=== PATIENT | female | born 1960 | race African-American/Black ===

== ENCOUNTER 2017-07-27 01:05 | Emergency (ER) | payer SELFPAY ==
[~2017-07-27] VITALS: Ht 160 cm; Wt 66.7 kg
[~2017-07-27 01:05] MED LIST: HYDR-971 PO
[2017-07-27 01:32] VITALS: BP 171/106
[2017-07-27] MEDS ORDERED: PENI500T PO (01:43)
--- NOTE | 2017-07-27 01:44 | PHYS DOC ---
Past Medical History Past Medical History: Hypertension, Hypothyroid Past Surgical History: Additional Past Surgical Histo: abscess Alcohol Use: None Drug Use: None Adult General Chief Complaint Chief Complaint: DENTAL PROBLEM HPI HPI Patient is a 57 year old F who presents with tooth pain. Patient states she was eating some nodules and fractured her left upper canine. Patient has severe dental disease has been having dental work done recently. Patient believes she is infection in this left upper canine tooth and would like antibiotics. Patient denies any other symptoms. Patient has no other complaints. Review of Systems Review of Systems GEN: Denies fevers, chills, sweats HEENT: Tooth pain CV: Denies chest pain RESP: Denies shortness of air, cough GI: Denies n/v/d NEURO: Denies confusion, dizziness MSK: Denies weakness, joint pain/swelling Allergies Allergies Allergies Coded Allergies Type Severity Reaction Last Updated Verified No Known Drug Allergies 07/09/14 No Physical Exam Physical Exam GEN.: No apparent distress. Alert and oriented. HEENT: Head is normocephalic, atraumatic, widespread dental caries and dental disease and gingivitis, left upper canine fracture with severe gingivitis NECK: Supple. LUNGS: CTAB. HEART: RRR, S1, S2 present. Peripheral pulses intact ABDOMEN: Soft, nontender. Positive bowel sounds. EXTREMITIES: Without any cyanosis. NEUROLOGIC: Normal speech, normal tone PSYCHIATRIC: Normal affect, normal mood. SKIN: No ulcerations EKG EKG [] Radiology/Procedures Radiology/Procedures [] Course & Med Decision Making Course & Med Decision Making Pertinent Labs and Imaging studies reviewed. (See chart for details) ED course: Patient was seen and examined emergency room patient has severe dental disease as currently getting dental work done at however the fractured tooth she would like antibiotics plan will be to give the patient penicillin VK to have her follow up with her dentist on Saturday. MDM: After reviewing the chart, CC/HPI/PMH, physical exam, I do not believe the patient has a severe dental infection warranting further workup and/or admission at this time. Patient is stable for discharge. Patient will receive a prescription for Penicillin VK with short-term follow-up with her dentist. Additional verbal discharge instructions were provided to the patient and that if symptoms get worse or any new symptoms arise that are worrisome to the patient she is to return to the emergency room immediately [] Emanuel Disclaimer Dragon Disclaimer This electronic medical record was generated, in whole or in part, using a voice recognition dictation system. Departure Departure Impression: Primary Impression: Fractured tooth Additional Impressions: Dental caries Gingivitis Disposition: HOME, SELF-CARE Condition: IMPROVED Referrals: NO PCP (PCP) Patient Instructions: Tooth Fracture Additional Instructions: Please follow up with your dentist at as soon as possible and return if symptoms increase Scripts Penicillin V Potassium (PENICILLIN V POTASSIUM) 500 Mg Tablet 1 TAB PO QID, #40 TAB Prov: MARY MARTINEZ DO 07/27/17 Problem Qualifiers MARY MARTINEZ DO Jul 27, 2017 01:44
[2017-07-27] MEDS ORDERED: PENICILLIN V K 250 MG TABLET. PO ONE (01:45)
== END 2017-07-27 01:59 | disposition home or self-care (01) ==
LOC: ER 01:05
DX: S02.5XXA Fracture of tooth (traumatic), initial encounter for closed fracture (principal); K02.9 Dental caries, unspecified; K05.10 Chronic gingivitis, plaque induced; I10 Essential (primary) hypertension; E03.9 Hypothyroidism, unspecified; X58.XXXA Exposure to other specified factors, initial encounter; Y93.89 Activity, other specified; Y92.89 Other specified places as the place of occurrence of the external cause; Y99.8 Other external cause status
CPT/HCPCS: 99283

== ENCOUNTER 2017-10-08 12:53 | Emergency (ER) | payer SELFPAY ==
[~2017-10-08] VITALS: Ht 160 cm; Wt 67.1 kg
[~2017-10-08 12:53] MED LIST changes: +PENI500T PO
[2017-10-08 13:00] VITALS: BP 163/100
[2017-10-08] MEDS ORDERED: AMOX500T PO (13:13)
[2017-10-08] MEDS ORDERED: DICL50TA4 PO (13:13)
--- NOTE | 2017-10-08 13:14 | PHYS DOC ---
Past Medical History Past Medical History: Hypertension, Hypothyroid Past Surgical History: Additional Past Surgical Histo: abscess Alcohol Use: None Drug Use: None Adult General Chief Complaint Chief Complaint: DENTAL PROBLEM HPI HPI Patient is a 57 year old female with history of hypertension and hypothyroidism who presents with moderate dental pain. Patient states she broke her tooth couple days ago. She states she has an appointment with her dentist on October 16, 2017 and was like antibiotics. Patient denies any fever or trismus. Review of Systems Review of Systems Constitutional: Denies fever or chills [] HENT: Dental pain. Denies nasal congestion or sore throat [] Musculoskeletal: Denies back pain or joint pain [] Integument: Denies rash or skin lesions [] Neurologic: Denies headache, focal weakness or sensory changes [] All other systems were reviewed and found to be within normal limits, except as documented in this note. Allergies Allergies Allergies Coded Allergies Type Severity Reaction Last Updated Verified No Known Drug Allergies 07/09/14 No Physical Exam Physical Exam Constitutional: Well developed, well nourished, no acute distress, non-toxic appearance. [] HENT: Normocephalic, atraumatic, bilateral external ears normal, oropharynx moist, no oral exudates, nose normal. [] Scattered dental caries throughout her teeth. Most of her teeth are missing.Left upper Canine appears broken and decayed. Skin: Warm, dry, no erythema, no rash. [] Back: No tenderness, no CVA tenderness. [] Extremities: No tenderness, no cyanosis, no clubbing, ROM intact, no edema. [] Neurologic: Alert and oriented X 3, normal motor function, normal sensory function, no focal deficits noted. [] Psychologic: Affect normal, judgement normal, mood normal. [] Current Patient Data Vital Signs Vital Signs Date Time Temp Pulse Resp B/P (MAP) Pulse Ox O2 Delivery O2 Flow Rate FiO2 10/08/17 13:00 97.8 71 16 99 Room Air 97.8 EKG EKG [] Radiology/Procedures Radiology/Procedures [] Course & Med Decision Making Course & Med Decision Making Pertinent Labs and Imaging studies reviewed. (See chart for details) Patient is in the ED with infected dental caries. Discharged with amoxicillin for 10 days. She has an appointment with her dentist on the September. Discharged with diclofenac for pain. Blood pressure in the emergency room was high in the 160s over 100's. Instructed patient to follow-up with her PCP in 1-2 weeks. Emanuel Disclaimer Emanuel Disclaimer This electronic medical record was generated, in whole or in part, using a voice recognition dictation system. Departure Departure Impression: Primary Impression: Infected dental caries Additional Impressions: Dentalgia Hypertension Disposition: 01 HOME, SELF-CARE Condition: STABLE Referrals: NO PCP (PCP) follow up with your dentist and primary care doctor as soon as you can Patient Instructions: Dental Caries Additional Instructions: You were seen for infected dental caries. Follow-up with your dentist as scheduled. Follow-up with the primary care doctor also because her blood pressure was high in the emergency room. Scripts Diclofenac Sodium (DICLOFENAC SODIUM) 50 Mg Tablet.dr 1 TAB PO BID, #20 TAB 0 Refills Prov: TRENTON HERNANDEZ APRN 10/08/17 Amoxicillin (AMOXICILLIN) 500 Mg Tablet 1 TAB PO TID, #30 TAB Prov: TRENTON HERNANDEZ APRN 10/08/17 Problem Qualifiers Additional Impressions: Hypertension Hypertension type: unspecified Qualified Codes: I10 - Essential (primary) hypertension TRENTON HERNANDEZ APRN Oct 08, 2017 13:14
== END 2017-10-08 13:26 | disposition home or self-care (01) ==
LOC: ER 12:53
DX: K04.7 Periapical abscess without sinus (principal); K02.9 Dental caries, unspecified; I10 Essential (primary) hypertension; E03.9 Hypothyroidism, unspecified
CPT/HCPCS: 99283

== ENCOUNTER 2017-12-04 11:21 | Emergency (ER) | payer SELFPAY | END 2017-12-04 11:53 | disposition home or self-care (01) | LOC: ER 11:21 | DX: K04.7 Periapical abscess without sinus (principal); K02.9 Dental caries, unspecified; I10 Essential (primary) hypertension; E03.9 Hypothyroidism, unspecified | CPT/HCPCS: 99283 ==

== ENCOUNTER 2018-03-07 08:41 | Emergency (ER) | payer SELFPAY, OTHER ==
[2018-03-07 09:07] LABS: BILIRUBIN,URINE NEGATIVE (NEG); CLARITY,URINE CLOUDY; COLOR,URINE YELLOW; GLUCOSE,URINE NEGATIVE (NEG); NITRITE,URINE NEGATIVE (NEG); PROTEIN,URINE NEGATIVE (NEG-TRACE); UROBILINOGEN,URINE 0.2 mg/dL (0.2 mg/dL)
[2018-03-07 09:22] LABS: BACTERIA,URINE FEW /HPF (0-FEW); SQUAMOUS EPITHELIAL CELL,UR MOD /LPF
== END 2018-03-07 09:30 | disposition home or self-care (01) ==
LOC: ER 09:30
DX: N39.0 Urinary tract infection, site not specified (principal); K08.89 Other specified disorders of teeth and supporting structures; I10 Essential (primary) hypertension; E03.9 Hypothyroidism, unspecified
CPT/HCPCS: 81001; 87086; 99284

== ENCOUNTER 2018-06-02 15:06 | Emergency (ER) | payer SELFPAY ==
[2018-06-02] MEDS: traMADol 50 MG TABLET PO (15:21)
== END 2018-06-02 16:11 | disposition home or self-care (01) ==
LOC: ER 15:06
DX: S63.501A Unspecified sprain of right wrist, initial encounter (principal); I10 Essential (primary) hypertension; E03.9 Hypothyroidism, unspecified; W18.30XA Fall on same level, unspecified, initial encounter; Y93.89 Activity, other specified; Y92.89 Other specified places as the place of occurrence of the external cause; Y99.8 Other external cause status
CPT/HCPCS: 29125; 73110; 99284

== ENCOUNTER 2018-06-08 21:33 | Emergency (ER) | payer SELFPAY ==
[2018-06-08 21:59] LABS: BILIRUBIN,URINE NEGATIVE (NEG); CLARITY,URINE CLOUDY; COLOR,URINE YELLOW; GLUCOSE,URINE NEGATIVE (NEG); NITRITE,URINE NEGATIVE (NEG); PH,URINE 5.5; PROTEIN,URINE 100 mg/dL (NEG-TRACE); UROBILINOGEN,URINE 0.2 mg/dL (0.2 mg/dL)
[2018-06-08 22:05] LABS: BACTERIA,URINE FEW /HPF (0-FEW); HYALINE CASTS, URINE OCCASIONAL /HPF; SQUAMOUS EPITHELIAL CELL,UR MOD /LPF
[2018-06-08] MEDS: traMADol 50 MG TABLET PO (22:45)
[2018-06-08] MEDS: NAPROXEN 250 MG TABLET PO (22:45)
== END 2018-06-08 22:49 | disposition home or self-care (01) ==
LOC: ER 21:33
DX: R22.31 Localized swelling, mass and lump, right upper limb (principal); R30.0 Dysuria; I10 Essential (primary) hypertension; E03.9 Hypothyroidism, unspecified
CPT/HCPCS: 81001; 99283

== ENCOUNTER 2018-09-28 14:59 | Emergency (ER) | payer SELFPAY ==
[~2018-09-28] VITALS: Ht 160 cm; Wt 66.2 kg
[~2018-09-28 14:59] MED LIST changes: +AMOX500T PO; +DICL50TA4 PO; +NAPR-683 PO; +SULF1TAB24 PO; +TRAM50TA PO
[2018-09-28 16:00] VITALS: BP 175/99
[2018-09-28] MEDS ORDERED: ACET-704 PO (17:14)
[2018-09-28] MEDS ORDERED: PENI500T PO (17:14)
--- NOTE | 2018-09-28 17:14 | PHYS DOC ---
Past Medical History Past Medical History: Hypertension, Hypothyroid Past Surgical History: , Other Additional Past Surgical Histo: abscess Alcohol Use: None Drug Use: None Adult General Chief Complaint Chief Complaint: DENTAL PROBLEM HPI HPI Patient is a 58 year old [f__sex] who presents with [] Review of Systems Review of Systems Constitutional: Denies fever or chills [] Eyes: Denies change in visual acuity, redness, or eye pain [] HENT: Denies nasal congestion or sore throat [] Respiratory: Denies cough or shortness of breath [] Cardiovascular: No additional information not addressed in HPI [] GI: Denies abdominal pain, nausea, vomiting, bloody stools or diarrhea [] : Denies dysuria or hematuria [] Musculoskeletal: Denies back pain or joint pain [] Integument: Denies rash or skin lesions [] Neurologic: Denies headache, focal weakness or sensory changes [] Endocrine: Denies polyuria or polydipsia [] All other systems were reviewed and found to be within normal limits, except as documented in this note. Allergies Allergies Allergies Coded Allergies Type Severity Reaction Last Updated Verified No Known Drug Allergies 07/09/14 No Physical Exam Physical Exam Constitutional: Well developed, well nourished, no acute distress, non-toxic appearance. [] HENT: Normocephalic, atraumatic, bilateral external ears normal, oropharynx moist, no oral exudates, nose normal. [] Eyes: PERRLA, EOMI, conjunctiva normal, no discharge. [] Neck: Normal range of motion, no tenderness, supple, no stridor. [] Cardiovascular:Heart rate regular rhythm, no murmur [] Lungs & Thorax: Bilateral breath sounds clear to auscultation [] Abdomen: Bowel sounds normal, soft, no tenderness, no masses, no pulsatile masses. [] Skin: Warm, dry, no erythema, no rash. [] Back: No tenderness, no CVA tenderness. [] Extremities: No tenderness, no cyanosis, no clubbing, ROM intact, no edema. [] Neurologic: Alert and oriented X 3, normal motor function, normal sensory function, no focal deficits noted. [] Psychologic: Affect normal, judgement normal, mood normal. [] Current Patient Data Vital Signs Vital Signs Date Time Temp Pulse Resp B/P (MAP) Pulse Ox O2 Delivery O2 Flow Rate FiO2 11/11/18 16:00 98.2 73 16 175/99 (124) 100 Room Air 98.2 EKG EKG [] Radiology/Procedures Radiology/Procedures [] Course & Med Decision Making Course & Med Decision Making Pertinent Labs and Imaging studies reviewed. (See chart for details) [] Dragon Disclaimer Dragon Disclaimer This electronic medical record was generated, in whole or in part, using a voice recognition dictation system. Departure Departure Impression: Primary Impression: Dentalgia Additional Impression: Infected dental caries Disposition: HOME, SELF-CARE Condition: STABLE Referrals: NO PCP (PCP) Patient Instructions: Dental Caries, Dental Pain, [id number] Additional Instructions: Fill prescriptions and use as directed. Follow up with your dentist on 10/09/18 as planned, return to ER if symptoms worsen. Scripts Acetaminophen With Codeine (TYLENOL WITH CODEINE #3 TABLET) 1 Each Tablet 1 TAB PO PRN Q6HRS PRN for PAIN for 3 Days, #12 TAB 0 Refills Prov: WESLEY SRIVASTAVA APRN 09/28/18 Penicillin V Potassium (PENICILLIN V POTASSIUM) 500 Mg Tablet 500 MG PO QID for 10 Days, #40 TAB 0 Refills Prov: WESLEY SRIVASTAVA APRN 09/28/18 Problem Qualifiers WESLEY SRIVASTAVA APRN Sep 28, 2018 17:14
== END 2018-09-28 17:15 | disposition home or self-care (01) ==
LOC: ER 14:59
DX: K02.9 Dental caries, unspecified (principal); I10 Essential (primary) hypertension; E03.9 Hypothyroidism, unspecified; Z98.890 Other specified postprocedural states
CPT/HCPCS: 99283

== ENCOUNTER 2019-02-09 10:51 | Emergency (ER) | payer SELFPAY ==
[~2019-02-09] VITALS: Ht 160 cm; Wt 66.2 kg
[~2019-02-09 10:51] MED LIST changes: +ACET-704 PO; +HYDR-3164 PO; -HYDR-971 PO
[2019-02-09 11:17] VITALS: BP 175/99
[2019-02-09] MEDS ORDERED: ACET-704 PO (11:40)
[2019-02-09] MEDS ORDERED: AMOX875T PO (11:40)
--- NOTE | 2019-02-09 11:40 | PHYS DOC ---
Past Medical History Past Medical History: Hypertension, Hypothyroid Past Surgical History: , Other Additional Past Surgical Histo: abscess Alcohol Use: None Drug Use: None Adult General Chief Complaint Chief Complaint: DENTAL PROBLEM HPI HPI Patient is a 58 year old female with history of hypertension, hypothyroidism, who presents today complaining of a throbbing 8 out of 10 frontal dental pain that began yesterday. Patient states her gum and draining pus since yesterday. Patient denies any fever or trismus. She states she has an appointment with her dentist next week. Intermittent Review of Systems Review of Systems Constitutional: Denies fever or chills [] Eyes: Denies change in visual acuity, redness, or eye pain [] HENT: Reports frontal gums upper teeth dental pain Denies nasal congestion or sore throat [] Musculoskeletal: Denies back pain or joint pain [] Integument: Denies rash or skin lesions [] Neurologic: Denies headache, focal weakness or sensory changes [] All other systems were reviewed and found to be within normal limits, except as documented in this note. Allergies Allergies Allergies Coded Allergies Type Severity Reaction Last Updated Verified No Known Drug Allergies 07/09/14 No Physical Exam Physical Exam Constitutional: Well developed, well nourished, no acute distress, non-toxic appearance. [] HENT: Normocephalic, atraumatic, bilateral external ears normal, oropharynx moist, no oral exudates, nose normal. [] Patient is missing most of her front teeth #8 and 9, there is trace amount of decayed teeth #8 and 9 left, the gum appears erythematous around this area. No obvious drainage noted. Skin: Warm, dry, no erythema, no rash. [] Back: No tenderness, no CVA tenderness. [] Extremities: No tenderness, no cyanosis, no clubbing, ROM intact, no edema. [] Neurologic: Alert and oriented X 3, normal motor function, normal sensory function, no focal deficits noted. [] Psychologic: Affect normal, judgement normal, mood normal. [] Current Patient Data Vital Signs Vital Signs Date Time Temp Pulse Resp B/P (MAP) Pulse Ox O2 Delivery O2 Flow Rate FiO2 02/09/19 11:17 98.6 82 18 175/99 (124) 99 Room Air 98.6 EKG EKG [] Radiology/Procedures Radiology/Procedures [] Course & Med Decision Making Course & Med Decision Making Pertinent Labs and Imaging studies reviewed. (See chart for details) This is a 58-year-old female patient presented to the ED today with dental infection. Will be discharged with amoxicillin and Tylenol #3. Follow-up with her dentist next week as scheduled. Zac Castellanos Disclaimer Dragon Disclaimer This electronic medical record was generated, in whole or in part, using a voice recognition dictation system. Departure Departure Impression: Primary Impression: Dentalgia Additional Impression: Abscess, dental Disposition: HOME, SELF-CARE Condition: STABLE Referrals: NO PCP (PCP) Follow-up with your dentist next week Patient Instructions: Dental Abscess Additional Instructions: You were elevated in the emergency room for dental infection. Please complete your antibiotics and follow-up with your dentist next week. Scripts Acetaminophen With Codeine (TYLENOL WITH CODEINE #3 TABLET) 1 Each Tablet 1 TAB PO PRN Q6HRS PRN for PAIN, #14 TAB Prov: TRENTON HERNANDEZ YIELD CLERK 02/09/19 Amoxicillin (AMOXICILLIN) 875 Mg Tablet 1 TAB PO BID, #20 TAB Prov: TRENTON HERNANDEZ YIELD CLERK 02/09/19 Problem Qualifiers TRENTON HERNANDEZ YIELD CLERK Feb 09, 2019 11:40
== END 2019-02-09 11:46 | disposition home or self-care (01) ==
LOC: ER 10:51
DX: K04.7 Periapical abscess without sinus (principal); K02.9 Dental caries, unspecified; I10 Essential (primary) hypertension; E03.9 Hypothyroidism, unspecified; Z98.890 Other specified postprocedural states
CPT/HCPCS: 99283

== ENCOUNTER 2019-03-09 08:17 | Emergency (ER) | payer SELFPAY ==
[~2019-03-09] VITALS: Ht 162.6 cm; Wt 64.9 kg
[~2019-03-09 08:17] MED LIST changes: +AMOX875T PO
[2019-03-09 08:29] VITALS: BP 161/97
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
[2019-03-09] MEDS ORDERED: SILV20CR14 TP (08:56)
== END 2019-03-09 09:06 | disposition home or self-care (01) ==
LOC: ER 08:17
DX: T20.26XA Burn of second degree of forehead and cheek, initial encounter (principal); I10 Essential (primary) hypertension; E03.9 Hypothyroidism, unspecified; X10.2XXA Contact with fats and cooking oils, initial encounter; Y93.G3 Activity, cooking and baking; Y92.89 Other specified places as the place of occurrence of the external cause; Y99.8 Other external cause status
CPT/HCPCS: 99283

== ENCOUNTER 2019-11-25 05:53 | Emergency (ER) | payer SELFPAY ==
[~2019-11-25] VITALS: Ht 160 cm; Wt 68.0 kg
[~2019-11-25 05:53] MED LIST changes: +SILV20CR14 TP
[2019-11-25 06:00] VITALS: BP 157/103
[2019-11-25] MEDS ORDERED: PENI500T PO (06:31)
[2019-11-25] MEDS ORDERED: NAPR-683 PO (06:31)
--- NOTE | 2019-11-25 06:32 | PHYS DOC ---
Past Medical History Past Medical History: Hypertension, Hypothyroid Past Surgical History: , Other Additional Past Surgical Histo: abscess Alcohol Use: Rarely Drug Use: None Adult General Chief Complaint Chief Complaint: DENTAL PROBLEM HPI HPI Patient is a 59 year old female with history of hypertension and hypothyroidism who presents with complaint of tooth pain. Patient rates she lost the crown for tooth #3 about 2 weeks ago and since then has had constant pain and rated her pain 10 over 10. Patient states she has appointment with her dentist for December 05 and was taking antibiotic and pain medication before seen by her doctor. Patient is asking for work excuse for today. She has had frequent emergency room visits for dental pain. Review of Systems Review of Systems Constitutional: Denies fever or chills [] Eyes: Denies change in visual acuity, redness, or eye pain [] HENT: Denies nasal congestion or sore throat, reports tooth pain [] Respiratory: Denies cough or shortness of breath [] Cardiovascular: No additional information not addressed in HPI [] GI: Denies abdominal pain, nausea, vomiting, bloody stools or diarrhea [] : Denies dysuria or hematuria [] Musculoskeletal: Denies back pain or joint pain [] Integument: Denies rash or skin lesions [] Neurologic: Denies headache, focal weakness or sensory changes [] Endocrine: Denies polyuria or polydipsia [] All other systems were reviewed and found to be within normal limits, except as documented in this note. Allergies Allergies Allergies Coded Allergies Type Severity Reaction Last Updated Verified No Known Drug Allergies 07/09/14 No Physical Exam Physical Exam Constitutional: Well developed, well nourished, mild distress, non-toxic appearance. [] HENT: Normocephalic, atraumatic, bilateral external ears normal, oropharynx m oist, no oral exudates, nose normal, several missing teeth, tooth #3 with missing the filling and mild gum tenderness and edema. [] Eyes: PERRLA, EOMI, conjunctiva normal, no discharge. [] Neck: Normal range of motion, no tenderness, supple, no stridor. [] Cardiovascular:Heart rate regular rhythm, no murmur [] Lungs & Thorax: Bilateral breath sounds clear to auscultation [] Extremities: No tenderness, no cyanosis, no clubbing, ROM intact, no edema. [] Neurologic: Alert and oriented X 3, normal motor function, normal sensory function, no focal deficits noted. [] Psychologic: Affect anxious, judgement normal, mood normal. [] Current Patient Data Vital Signs Vital Signs Date Time Temp Pulse Resp B/P (MAP) Pulse Ox O2 Delivery O2 Flow Rate FiO2 11/25/19 06:00 97.9 70 16 157/103 (121) 100 Room Air 97.9 EKG EKG [] Radiology/Procedures Radiology/Procedures [] Course & Med Decision Making Course & Med Decision Making Evaluation of patient in ER showed 59-year-old female patient with complaining of missing dental crown and pain for 2 weeks. She also had blood pressure of 160s over 100 at arrival to ER and states that she just took her blood pressure medication prior to arrival to ER. Blood pressure gradually dropped [id number]. Patient has appointment with her dentist in December 05. I've spoken with the patient and/or caregivers. I've explained the patient's condition, diagnosis and treatment plan based on information available to me at this time. I've answered the patient's and/or caregivers questions and addressed any concerns. The patient and/or caregivers have a good understanding the patient's diagnosis, condition and treatment plan as can be expected at this point. Vital signs have been stabilized. The patient's condition is stable for discharge from the emergency department. The patient will pursue further outpatient evaluation with her primary care provider or other designated consulting physician as outlined in the discharge instructions. Patient and/or caregivers are agreeable to this plan of care and follow-up instructions have been explained in detail. The patient and/or care givers have received these instructions in written format and expressed understanding of these discharge instructions. The patient and her caregivers are aware that if any significant change in condition or worsening of symptoms should prompt him to immediately return to this of the closest emergency department. If an emergent department is not readily available I would encourage him to call 911. Emanuel Disclaimer Emanuel Disclaimer This electronic medical record was generated, in whole or in part, using a voice recognition dictation system. Departure Departure Impression: Primary Impression: Dentalgia Additional Impressions: Infected dental caries Hypertension, accelerated Disposition: HOME, SELF-CARE (At 0627) Condition: STABLE Referrals: UNKNOWN PCP NAME (PCP) Patient Instructions: Managing Your High Blood Pressure, Tooth Fracture Additional Instructions: Follow-up with your dentist appointment as scheduled for December 05 Return to ER if not getting better Thank you for visiting [facility]. We appreciate you trusting us with your care. If any additional problems come up don't hesitate to return to visit us. Please follow up with your primary care provider so they can plan additional care if needed and know about the problem that you had. If symptoms worsen come back to the Emergency Department. Any concerning symptoms that start such as chest pain, shortness of air, weakness or numbness on one side of the body, running high fevers or any other concerning symptoms return to the ER. Scripts Penicillin V Potassium (PENICILLIN V POTASSIUM) 500 Mg Tablet 2 TAB PO Q12HR, #40 TAB Prov: LUIS VERA MD 11/25/19 Naproxen (NAPROSYN) 500 Mg Tablet 1 TAB PO BID for pain, #20 TAB Prov: LUIS VERA MD 11/25/19 Problem Qualifiers LUIS VERA MD Nov 25, 2019 06:31
== END 2019-11-25 06:35 | disposition home or self-care (01) ==
LOC: ER 05:53
DX: K02.9 Dental caries, unspecified (principal); K08.89 Other specified disorders of teeth and supporting structures; I10 Essential (primary) hypertension; E03.9 Hypothyroidism, unspecified; Z98.890 Other specified postprocedural states
CPT/HCPCS: 99283

== ENCOUNTER 2020-02-22 10:20 | Emergency (ER) | payer SELFPAY ==
[~2020-02-22] VITALS: Ht 160 cm; Wt 63.6 kg
[2020-02-22 10:27] VITALS: BP 177/103
[2020-02-22] MEDS ORDERED: ACET-704 PO (10:57)
[2020-02-22] MEDS ORDERED: PENI500T PO (10:57)
--- NOTE | 2020-02-22 10:57 | PHYS DOC ---
Past Medical History Past Medical History: Hypertension, Hypothyroid Past Surgical History: , Other Additional Past Surgical Histo: abscess Smoking Status: Never Smoker Alcohol Use: Rarely Drug Use: None Adult General Chief Complaint Chief Complaint: DENTAL PROBLEM HPI HPI Patient is a 60 year old female who presents with right back dental pain with right-sided facial swelling for the last week. Patient states is actually been going on longer than that she is been taking Tylenol but is not helping anymore. She does have an appointment at [facility] on the . She rates her pain an 8 out of 10. She denies fever, nausea, vomiting, body aches, cough, abdominal pain, chest pain, shortness of air, dizziness, headache. Review of Systems Review of Systems HENT: Denies nasal congestion or sore throat. Dental pain. [] All other systems were reviewed and found to be within normal limits, except as documented in this note. Allergies Allergies Allergies Coded Allergies Type Severity Reaction Last Updated Verified No Known Drug Allergies 07/09/14 No Physical Exam Physical Exam Constitutional: Well developed, well nourished, no acute distress, non-toxic appearance. [] HENT: Normocephalic, atraumatic, bilateral external ears normal, oropharynx moist, no oral exudates, nose normal. Right upper back molar dental carry with right-sided facial swelling and gumline swelling. [] Eyes: PERRLA, EOMI, conjunctiva normal, no discharge. [] Neck: Normal range of motion, no tenderness, supple, no stridor. [] Cardiovascular:Heart rate regular rhythm, no murmur [] Lungs & Thorax: Bilateral breath sounds clear to auscultation [] Abdomen: Bowel sounds normal, soft, no tenderness, no masses, no pulsatile masses. [] Skin: Warm, dry, no erythema, no rash. [] Back: No tenderness, no CVA tenderness. [] Extremities: No tenderness, no cyanosis, no clubbing, ROM intact, no edema. [] Neurologic: Alert and oriented X 3, normal motor function, normal sensory function, no focal deficits noted. [] Psychologic: Affect normal, judgement normal, mood normal. [] Current Patient Data Vital Signs Vital Signs Date Time Temp Pulse Resp B/P (MAP) Pulse Ox O2 Delivery O2 Flow Rate FiO2 02/22/20 10:27 98.1 70 18 177/103 (127) 98 Room Air 98.1 EKG EKG [] Radiology/Procedures Radiology/Procedures [] Course & Med Decision Making Course & Med Decision Making Pertinent Labs and Imaging studies reviewed. (See chart for details) Alert and oriented. Speaks in full clear sentences. Patient has right-sided facial swelling. Patient has a back upper molar that is broken off and black. The gumline around it is swollen and slightly tender with palpation. She is afebrile. [] Dragon Disclaimer Dragon Disclaimer This electronic medical record was generated, in whole or in part, using a voice recognition dictation system. Departure Departure Impression: Primary Impression: Abscess, dental Disposition: HOME, SELF-CARE Condition: STABLE Referrals: CHIQUITA QUINONES MD (PCP) Patient Instructions: Dental Abscess, Dental Caries-Brief Additional Instructions: Keep your appointment with [facility] as planned. Take medications as prescribed and with food. Scripts Acetaminophen With Codeine (TYLENOL WITH CODEINE #3 TABLET) 1 Each Tablet 1 TAB PO PRN Q6HRS PRN for pain MDD 4 Tablet(s) for 7 Days, #28 TAB 0 Refills Prov: LEVAR CARDOZA APRN 02/22/20 Penicillin V Potassium (PENICILLIN V POTASSIUM) 500 Mg Tablet 1 TAB PO QID, #40 TAB Prov: LEVAR CARDOZA ABSORPTION AND ADSORPTION ENGINEER 02/22/20 LEVAR CARDOZA APRN Feb 22, 2020 10:57
== END 2020-02-22 11:42 | disposition home or self-care (01) ==
LOC: ER 10:20
DX: K04.7 Periapical abscess without sinus (principal); K08.89 Other specified disorders of teeth and supporting structures; R60.0 Localized edema; I10 Essential (primary) hypertension; E03.9 Hypothyroidism, unspecified; Z98.890 Other specified postprocedural states
CPT/HCPCS: 99283

== ENCOUNTER 2020-03-30 16:43 | Emergency (ER) | payer SELFPAY ==
[~2020-03-30] VITALS: Ht 160 cm; Wt 70.0 kg
[2020-03-30 16:50] VITALS: BP 158/91
--- NOTE | 2020-03-30 17:05 | PHYS DOC ---
Past Medical History Past Medical History: Hypertension, Hypothyroid Past Surgical History: , Other Additional Past Surgical Histo: abscess Smoking Status: Never Smoker Alcohol Use: Rarely Drug Use: None General Adult EDM: Chief Complaint: DENTAL PROBLEM HPI: HPI: Patient is a 60 year old female who presents with cough with yellow mucus production and itchy throat. States only been taking tylenol. She also has a right upper molar that is broken and black and painful for the last week. She does have a dentist appointment on the 09 of April. Denies chest pain, soa, abdominal pain, nausea, vomiting, headache, dizziness, fever, chills, vision changes, numbness or tingling. Review of Systems: Review of Systems: HENT: Denies nasal congestion. itchy throat. Dental pain. [] Respiratory: cough or denies shortness of breath. [] Heart Score: Risk Factors: Risk Factors: DM, Current or recent (<one month) smoker, HTN, HLP, family history of CAD, obesity. Risk Scores: Score 0 - 3: 2.5% MACE over next 6 weeks - Discharge Home Score 4 - 6: 20.3% MACE over next 6 weeks - Admit for Clinical Observation Score 7 - 10: 72.7% MACE over next 6 weeks - Early Invasive Strategies Allergies: Allergies: Allergies Coded Allergies Type Severity Reaction Last Updated Verified No Known Drug Allergies 07/09/14 No Physical Exam: PE: Constitutional: Well developed, well nourished, no acute distress, non-toxic appearance. [] HENT: Normocephalic, atraumatic, bilateral external ears normal, oropharynx moist, no oral exudates, nose normal. Right upper molar broken and black in color. [] Eyes: PERRLA, EOMI, conjunctiva normal, no discharge. [] Neck: Normal range of motion, no tenderness, supple, no stridor. [] Cardiovascular:Heart rate regular rhythm, no murmur [] Lungs & Thorax: Bilateral breath sounds clear to auscultation [] Abdomen: Bowel sounds normal, soft, no tenderness, no masses, no pulsatile masses. [] Skin: Warm, dry, no erythema, no rash. [] Back: No tenderness, no CVA tenderness. [] Extremities: No tenderness, no cyanosis, no clubbing, ROM intact, no edema. [] Neurologic: Alert and oriented X 3, normal motor function, normal sensory function, no focal deficits noted. [] Psychologic: Affect normal, judgement normal, mood normal. [] EKG: EKG: [] Radiology/Procedures: Radiology/Procedures: [] Course & Med Decision Making: Course & Med Decision Making Pertinent Labs and Imaging studies reviewed. (See chart for details) No facial swelling. Afebrile. Lungs are clear to auscultation in all lobes. Speaks in full clear sentences. Skin pink warm and dry. Ambulatory with a steady gait. Gum line reddened and swollen. Patient states she does not want pain medication and she will just take tylenol. Patient refusing chest x-ray. [] Dragon Disclaimer: Dragon Disclaimer: This electronic medical record was generated, in whole or in part, using a voice recognition dictation system. Departure Departure Impression: Primary Impression: Infected dental caries Additional Impression: Cough Disposition: 01 HOME, SELF-CARE Condition: STABLE Referrals: PAM ALEXANDRE MD (PCP) Patient Instructions: Cough, Adult, Dental Caries Additional Instructions: Follow-up with him as a scheduled. Take medication with food and as prescribed. Scripts Loratadine (CLARITIN) 10 Mg Capsule 1 CAP PO DAILY for allergy symptoms for 30 Days, #30 CAP 0 Refills Prov: LEVAR CARDOZA APRN 03/30/20 Penicillin V Potassium (PENICILLIN V POTASSIUM) 500 Mg Tablet 1 TAB PO QID, #40 TAB Prov: LEVAR CARDOZA APRN 03/30/20 LEVAR CARDOZA APRN March 30, 2020 17:05
[2020-03-30] MEDS ORDERED: LORA10CA PO (17:16)
[2020-03-30] MEDS ORDERED: PENI500T PO (17:16)
== END 2020-03-30 17:39 | disposition home or self-care (01) ==
LOC: ER 16:43
DX: K02.9 Dental caries, unspecified (principal); K08.89 Other specified disorders of teeth and supporting structures; R05 Cough; I10 Essential (primary) hypertension; E03.9 Hypothyroidism, unspecified; Z98.890 Other specified postprocedural states
CPT/HCPCS: 99283

== ENCOUNTER 2020-08-24 09:25 | Emergency (ER) | payer SELFPAY ==
[~2020-08-24] VITALS: Ht 160 cm; Wt 65.0 kg
[~2020-08-24 09:25] MED LIST changes: +LORA10CA PO
[2020-08-24 09:35] VITALS: BP 170/90
[2020-08-24] MEDS ORDERED: AMOX1TAB61 PO (09:56)
[2020-08-24] MEDS ORDERED: TRAM50TA PO (09:56)
--- NOTE | 2020-08-24 09:57 | ED.ADGEN ---
Past Medical History Past Medical History: Hypertension, Hypothyroid Past Surgical History: , Other Additional Past Surgical Histo: abscess Smoking Status: Never Smoker Alcohol Use: Rarely Drug Use: None Adult General Chief Complaint Chief Complaint: DENTAL PROBLEM HPI HPI Patient is a 60 year old right upper dental pain. Says it was getting worse since last night. Has had some swelling and pain in the past. Denies any trauma or breaking of the tooth. Has an appointment scheduled with her dentist in 6 days. Review of Systems Review of Systems Constitutional: Denies fever or chills. [] Eyes: Denies change in visual acuity. [] HENT: Denies nasal congestion or sore throat. [] Respiratory: Denies cough or shortness of breath. [] Cardiovascular: Denies chest pain or edema. [] GI: Denies abdominal pain, nausea, vomiting, bloody stools or diarrhea. [] : Denies dysuria. [] Musculoskeletal: Denies back pain or joint pain. [] Integument: Denies rash. [] Neurologic: Denies headache, focal weakness or sensory changes. [] Endocrine: Denies polyuria or polydipsia. [] Lymphatic: Denies swollen glands. [] Psychiatric: Denies depression or anxiety. [] Allergies Allergies Allergies Coded Allergies Type Severity Reaction Last Updated Verified No Known Drug Allergies 07/09/14 No Physical Exam Physical Exam Constitutional: Well developed, well nourished, no acute distress, non-toxic appearance. [] HENT: Normocephalic, atraumatic, bilateral external ears normal, oropharynx moist, no oral exudates, nose normal. Poor dentition with multiple dental caries, swelling of the gingiva without abscess [] Eyes: PERRLA, EOMI, conjunctiva normal, no discharge. [] Neck: Normal range of motion, no tenderness, supple, no stridor. [] Cardiovascular:Heart rate regular rhythm, no murmur [] Lungs & Thorax: Bilateral breath sounds clear to auscultation [] Abdomen: Bowel sounds normal, soft, no tenderness, no masses, no pulsatile masses. [] Skin: Warm, dry, no erythema, no rash. [] Back: No tenderness, no CVA tenderness. [] Extremities: No tenderness, no cyanosis, no clubbing, ROM intact, no edema. [] Neurologic: Alert and oriented X 3, normal motor function, normal sensory function, no focal deficits noted. [] Psychologic: Affect normal, judgement normal, mood normal. [] Current Patient Data Vital Signs Vital Signs Date Time Temp Pulse Resp B/P (MAP) Pulse Ox O2 Delivery O2 Flow Rate FiO2 08/24/20 09:35 97.7 83 18 170/90 (116) 99 Room Air 97.7 EKG EKG [] Radiology/Procedures Radiology/Procedures [] Course & Med Decision Making Course & Med Decision Making Pertinent Labs and Imaging studies reviewed. (See chart for details) [] Dragon Disclaimer Dragon Disclaimer This electronic medical record was generated, in whole or in part, using a voice recognition dictation system. Departure Departure Impression: Primary Impression: Abscess, dental Disposition: HOME, SELF-CARE Condition: STABLE Referrals: PAM ALEXANDRE MD (PCP) Patient Instructions: Dental Abscess Scripts Tramadol Hcl (TRAMADOL HCL) 50 Mg Tablet 50 MG PO Q6HRS PRN for PAIN for 3 Days, #12 TAB Prov: FINN CUNNINGHAM MD 08/24/20 Amoxicillin/Potassium Clav (AUGMENTIN 875-125 TABLET) 1 Each Tablet 1 TAB PO Q12HR for dental infection for 10 Days, #20 TAB Prov: FINN CUNNINGHAM MD 08/24/20 FINN CUNNINGHAM MD Aug 24, 2020 09:57
== END 2020-08-24 10:40 | disposition home or self-care (01) ==
LOC: ER 09:25
DX: K04.7 Periapical abscess without sinus (principal); I10 Essential (primary) hypertension; E03.9 Hypothyroidism, unspecified
CPT/HCPCS: 99283

== ENCOUNTER 2020-09-21 09:36 | Emergency (ER) | payer SELFPAY ==
[~2020-09-21] VITALS: Ht 160 cm; Wt 63.0 kg
[~2020-09-21 09:36] MED LIST changes: +AMOX1TAB61 PO
[2020-09-21 10:00] VITALS: BP 173/81
[2020-09-21] MEDS ORDERED: AMOX500C PO (10:24)
--- NOTE | 2020-09-21 10:24 | PHYS DOC ---
Past Medical History Past Medical History: Hypertension, Hypothyroid Past Surgical History: , Other Additional Past Surgical Histo: abscess Smoking Status: Never Smoker Alcohol Use: Rarely Drug Use: None General Adult EDM: Chief Complaint: DENTAL PROBLEM HPI: HPI: History obtained from patient. Patient is a 60-year-old female who presents with chief complaint of right upper tooth pain. States she has had this pain for the past 3 days. She notes that she bit into a rib bone that worsened her dental pain. States she has had multiple teeth removed for the past several months. She does note that she has a bridge of her front teeth due to trauma years ago. She denies any fevers. Denies any drainage in the mouth. States [facility] cannot [facility] for the next few weeks. States she needs antibiotics to bridge her to that appointment. Denies any pain with opening her mouth. Denies any difficulty breathing. Denies changes in her voice. Denies any submental swelling. Nuys any neck pain. Has tried Tylenol at home with some relief. No other complaints. Review of Systems: Review of Systems: Constitutional: Denies fever or chills. [] Eyes: Denies change in visual acuity. [] HENT: Positive for dental pain Respiratory: Denies cough or shortness of breath. [] Cardiovascular: Denies chest pain or edema. [] GI: Denies abdominal pain, nausea, vomiting, bloody stools or diarrhea. [] : Denies dysuria. [] Musculoskeletal: Denies back pain or joint pain. [] Integument: Denies rash. [] Neurologic: Denies headache, focal weakness or sensory changes. [] Endocrine: Denies polyuria or polydipsia. [] Lymphatic: Denies swollen glands. [] Psychiatric: Denies depression or anxiety. [] Heart Score: Risk Factors: Risk Factors: DM, Current or recent (<one month) smoker, HTN, HLP, family histo ry of CAD, obesity. Risk Scores: Score 0 - 3: 2.5% MACE over next 6 weeks - Discharge Home Score 4 - 6: 20.3% MACE over next 6 weeks - Admit for Clinical Observation Score 7 - 10: 72.7% MACE over next 6 weeks - Early Invasive Strategies Allergies: Allergies: Allergies Coded Allergies Type Severity Reaction Last Updated Verified No Known Drug Allergies 07/09/14 No Physical Exam: PE: Constitutional: Well developed, well nourished, no acute distress, non-toxic appearance. [] ENT: Numerous dental caries without overt evidence of periapical abscess formation. Focal necrotic #3 tooth noted. No tenderness to tooth percussion. Tolerates saliva. No trismus. No erythema or exudate of the oropharynx. No airway obstruction or deep space infection. Normal phonation. Uvula midline. NECK: No midline cervical tenderness. Anterior cervical adenopathy not present. No tenderness of carotid sheath bilaterally. No submental tenderness, swelling, or erythema. Neck supple with full ROM and without signs of meningismus. Eyes: PERRLA, EOMI, conjunctiva normal, no discharge. [] Neck: Normal range of motion, no tenderness, supple, no stridor. [] Cardiovascular:Heart rate regular rhythm, no murmur [] Lungs & Thorax: Bilateral breath sounds clear to auscultation [] Abdomen: soft, no tenderness, no masses, no pulsatile masses. [] Skin: Warm, dry, no erythema, no rash. [] Back: No tenderness, no CVA tenderness. [] Extremities: No tenderness, no cyanosis, no clubbing, ROM intact, no edema. [] Neurologic: Alert and oriented X 3, normal motor function, normal sensory func tion, no focal deficits noted. [] Psychologic: Affect normal, judgement normal, mood normal. [] EKG: EKG: [] Radiology/Procedures: Radiology/Procedures: [] Course & Med Decision Making: Course & Med Decision Making Pertinent Labs and Imaging studies reviewed. (See chart for details) [] Patient is a well-appearing 60-year-old female with a chief complaint of tooth #3 pain. She does have obvious signs of dental caries and necrosis. No signs of deep space infection on history or exam. Patient did tolerate her firs t dose of amoxicillin and ibuprofen in the emergency department. She does state that she has dental follow-up. Advanced imaging and lab will be deferred. She will discharge home with a prescription of amoxicillin. Supportive care measures encouraged at home. Return precautions discussed and understood. At this point I estimate that the patient is low risk for an emergent etiology such as; acute necrotizing ulcerative gingivitis, retropharyngeal abscess, peritonsillar abscess, Nabil's Angina, bacterial meningitis, unstable cervical fracture, or airway compromise. There is a very small possibility that any of these conditions (or others) could potentialy be in the very early stages and/or could develop in the near future, but at this point, I consider discharge a reasonable course of action. Emanuel Disclaimer: Emanuel Disclaimer: This electronic medical record was generated, in whole or in part, using a voice recognition dictation system. Departure Departure Impression: Primary Impression: Tooth pain Disposition: 01 DC HOME SELF CARE/HOMELESS Condition: STABLE Referrals: PAM ALEXANDRE MD (PCP) Patient Instructions: Toothache-Brief Additional Instructions: Please follow-up with your dentist in the next week. Scripts Amoxicillin (AMOXICILLIN) 500 Mg Capsule 1 CAP PO BID for 10 Days, #20 CAP Prov: RAVIN UMANZOR DO 09/21/20 RAVIN UMANZOR DO Sep 21, 2020 10:24
[2020-09-21] MEDS ORDERED: IBUPROFEN 200 MG TABLET. PO ONE (10:30)
[2020-09-21] MEDS ORDERED: AMOXICILLIN 250 MG CAPSULE. PO ONE (10:30)
== END 2020-09-21 10:56 | disposition home or self-care (01) ==
LOC: ER 09:36
DX: K08.89 Other specified disorders of teeth and supporting structures (principal); I10 Essential (primary) hypertension; E03.9 Hypothyroidism, unspecified; Z98.890 Other specified postprocedural states
CPT/HCPCS: 99283

== ENCOUNTER 2020-10-29 11:40 | Emergency (ER) | payer SELFPAY ==
[~2020-10-29] VITALS: Ht 160 cm; Wt 60.0 kg
[~2020-10-29 11:40] MED LIST changes: +AMOX500C PO
[2020-10-29 12:36] VITALS: BP 178/90
[2020-10-29] MEDS ORDERED: AMOX500T PO (13:05)
--- NOTE | 2020-10-29 13:05 | PHYS DOC ---
Past Medical History Past Medical History: No Pertinent History (SERGIOTRENTON Vivas APRN) Past Surgical History: Additional Past Surgical Histo: abscess (SERGIOTRENTON Vivas APRN) Smoking Status: Never Smoker Alcohol Use: None Drug Use: None (MARYTRENTON APRN) General Adult EDM: Chief Complaint: DENTAL PROBLEM HPI: HPI: Patient is a 60 year old who presents for dental infection. Patient is requesting antibiotics. She states she already has an appointment with the dentist on the of this month. (SERGIOTRENTON Vivas APRN) Review of Systems: Review of Systems: Constitutional: Denies fever or chills. [] HENT: Reports dental infection and would like antibiotics. Denies nasal conge stion or sore throat. [] Musculoskeletal: Denies back pain or joint pain. [] Integument: Denies rash. [] Neurologic: Denies headache, focal weakness or sensory changes. [] Psychiatric: Denies depression or anxiety. [] (TRENTON HERNANDEZ APRN) Heart Score: Risk Factors: Risk Factors: DM, Current or recent (<one month) smoker, HTN, HLP, family history of CAD, obesity. Risk Scores: Score 0 - 3: 2.5% MACE over next 6 weeks - Discharge Home Score 4 - 6: 20.3% MACE over next 6 weeks - Admit for Clinical Observation Score 7 - 10: 72.7% MACE over next 6 weeks - Early Invasive Strategies (TRENTON HERNANDEZ APRN) Allergies: Allergies: Allergies Coded Allergies Type Severity Reaction Last Updated Verified No Known Drug Allergies 07/09/14 No (SERGIOTRENTON Vivas APRN) Physical Exam: PE: Constitutional: Well developed, well nourished, no acute distress, non-toxic appearance. [] HENT: Normocephalic, atraumatic, bilateral external ears normal, oropharynx moist, no oral exudates, nose normal. [] Patient is missing multiple teeth. Approximately tooth #3 or 4 is of concern, it is decayed. No abscess noted. Skin: Warm, dry, no erythema, no rash. [] Back: No tenderness, no CVA tenderness. [] Extremities: No tenderness, no cyanosis, no clubbing, ROM intact, no edema. [] Neurologic: Alert and oriented X 3, normal motor function, normal sensory function, no focal deficits noted. [] Psychologic: Affect normal, judgement normal, mood normal. [] (TRENTON HERNANDEZ APRN) Current Patient Data: Vital Signs: Vital Signs Date Time Temp Pulse Resp B/P (MAP) Pulse Ox O2 Delivery O2 Flow Rate FiO2 10/29/20 12:36 98.3 79 16 178/90 (119) 100 Room Air 98.3 (TRENTON HERNANDEZ APRN) EKG: EKG: [] (TRENTON HERNANDEZ APRN) Radiology/Procedures: Radiology/Procedures: [] (TRENTON HERNANDEZ APRN) Course & Med Decision Making: Course & Med Decision Making Pertinent Labs and Imaging studies reviewed. (See chart for details) This is a 6-year-old female patient with dental infection. Discharged on amoxicillin. Follow-up with her dentist on November 16, 2020 as scheduled (TRENTON HERNANDEZ APRN) Dragon Disclaimer: Dragon Disclaimer: This electronic medical record was generated, in whole or in part, using a voice recognition dictation system. (TRENTON HERNANDEZ APRN) Departure Departure Impression: Primary Impression: Dental infection Disposition: DC HOME SELF CARE/HOMELESS Condition: STABLE Referrals: PAM ALEXANDRE MD (PCP) Follow-up with your dentist as scheduled Patient Instructions: Dental Caries Additional Instructions: You were seen for dental infection, take the prescribed Amoxicillin until completed. Follow-up with your dentist as scheduled. Scripts Amoxicillin (AMOXICILLIN) 500 Mg Tablet 1 TAB PO BID, #20 TAB Prov: TRENTON HERNANDEZ APRN 10/29/20 Attending Signature Attending Signature I have reviewed the PA/[employer]'s note and plan of care. I was available for consultation as needed during the patient's visit in the emergency department. I agree with the clinical impression, plan, and disposition. (PAM NICE DO) TRENTON HERNANDEZ APRN Oct 29, 2020 13:05 PAM NICE DO Oct 29, 2020 18:31
== END 2020-10-29 13:09 | disposition home or self-care (01) ==
LOC: ER 11:40
DX: K04.7 Periapical abscess without sinus (principal); Z98.890 Other specified postprocedural states
CPT/HCPCS: 99283

== ENCOUNTER 2021-02-28 11:14 | Emergency (ER) | payer SELFPAY ==
[~2021-02-28] VITALS: Ht 160 cm; Wt 66.4 kg
[2021-02-28] MEDS ORDERED: CLIN150C15 PO (13:53)
[2021-02-28] MEDS ORDERED: TRAM50TA PO (13:53)
--- NOTE | 2021-02-28 13:56 | ED.ADGEN ---
Past Medical History Past Medical History: No Pertinent History Past Surgical History: Additional Past Surgical Histo: abscess Smoking Status: Never Smoker Alcohol Use: None Drug Use: None General Adult EDM: Chief Complaint: DENTAL PROBLEM HPI: HPI: Patient is a 61 year old AA female who presents emergency department with complaints of right upper and lower dental pain for the last 6 days. Patient states that she has broken posterior molars on the top and the bottom for several months, she states that they did not become painful until last week. She denies any fever, nausea, vomiting, diarrhea, abdominal pain, sore throat, dysphagia, or cough. Patient reports that some bowel tasting drainage has come from the upper site. She reports that she has a dental appointment scheduled in 10 days but is not able to follow-up with her dentist until then. She states she has been taking Tylenol and ibuprofen at home with some relief of her pain and is requesting tramadol for her severe pain. Review of Systems: Review of Systems: Complete ROS is negative unless otherwise noted in HPI. Allergies: Allergies: Allergies Coded Allergies Type Severity Reaction Last Updated Verified No Known Drug Allergies 07/09/14 No Physical Exam: PE: See Above Constitutional: Well developed, well nourished, no acute distress, non-toxic appearance. [] HENT: Normocephalic, atraumatic, bilateral external ears normal, nose normal; diffuse dental decay and fractures of the posterior molars of the right mandible and maxilla, no visible or palpable dental abscess, no purulent drainage, mild surrounding gingival edema Eyes: PERRLA, EOMI, conjunctiva normal, no discharge. [] Neck: Normal range of motion, no stridor. [] Cardiovascular:Heart rate regular rhythm Lungs & Thorax: Respirations even and unlabored, no retractions, no respiratory distress Skin: Warm, dry, no erythema, no rash. [] Extremities: No cyanosis, ROM intact, no edema. [] Neurologic: Alert and oriented X 3, no focal deficits noted. [] Psychologic: Affect normal, judgement normal, mood normal. [] Current Patient Data: Vital Signs: Vital Signs Date Time Temp Pulse Resp B/P (MAP) Pulse Ox O2 Delivery O2 Flow Rate FiO2 02/28/21 11:59 98.2 78 20 163/112 (129) 97 Room Air 98.2 EKG: EKG: [] Heart Score: C/O Chest Pain: No Risk Scores: Score 0 - 3: 2.5% MACE over next 6 weeks - Discharge Home Score 4 - 6: 20.3% MACE over next 6 weeks - Admit for Clinical Observation Score 7 - 10: 72.7% MACE over next 6 weeks - Early Invasive Strategies Radiology/Procedures: Radiology/Procedures: [] Course & Med Decision Making: Course & Med Decision Making Pertinent Labs and Imaging studies reviewed. (See chart for details) [] Dragon Disclaimer: Dragon Disclaimer: This electronic medical record was generated, in whole or in part, using a voice recognition dictation system. Departure Departure Impression: Primary Impression: Infected dental caries Additional Impression: Dentalgia Disposition: HOME / SELF CARE / HOMELESS Condition: STABLE Referrals: PAM ALEXANDRE MD (PCP) Patient Instructions: Dental Caries, Dental Pain, [id number] Additional Instructions: Fill prescription(s) and use as directed. Follow up with your dentist as planned. Take your blood pressure medication as prescribed, follow up with your PCP for evaluation of your blood pressure in 1-2 days. Return to the ER if symptoms worsen or fever develops. Scripts Tramadol Hcl (TRAMADOL HCL) 50 Mg Tablet 50 MG PO Q6HRS PRN for PAIN for 3 Days, #10 TAB 0 Refills Prov: WESLEY SRIVASTAVA APRN 02/28/21 Clindamycin Hcl (CLINDAMYCIN HCL) 150 Mg Capsule 450 MG PO TID for 7 Days, #63 CAP 0 Refills Prov: WESLEY SRIVASTAVA APRN 02/28/21 Problem Qualifiers WESLEY SRIVASTAVA [employer]ESS OPERATOR [employer] Feb 28, 2021 13:56
[2021-02-28 14:00] VITALS: BP 167/104
== END 2021-02-28 14:01 | disposition home or self-care (01) ==
LOC: ER 11:14
DX: K04.7 Periapical abscess without sinus (principal); K08.89 Other specified disorders of teeth and supporting structures
CPT/HCPCS: 99283

== ENCOUNTER 2021-05-25 14:52 | Emergency (ER) | payer SELFPAY ==
[~2021-05-25] VITALS: Ht 160 cm; Wt 71.2 kg
[~2021-05-25 14:52] MED LIST changes: +CLIN150C15 PO
[2021-05-25 15:10] VITALS: BP 185/97
[2021-05-25] MEDS ORDERED: AMOX875T PO (15:40)
--- NOTE | 2021-05-25 15:41 | PHYS DOC ---
Past Medical History Past Medical History: Hypertension Past Surgical History: Additional Past Surgical Histo: abscess Smoking Status: Never Smoker Alcohol Use: None Drug Use: None General Adult EDM: Chief Complaint: DENTAL PROBLEM HPI: HPI: Patient is a 61 year old female who presents to the ED today with an abscess on the right lower gum since yesterday. Patient denies any fever or trismus. Review of Systems: Review of Systems: Constitutional: Denies fever or chills. [] HENT: Reports right lower gum abscess. Denies nasal congestion or sore throat. [] Musculoskeletal: Denies back pain or joint pain. [] Integument: Denies rash. [] Neurologic: Denies headache, focal weakness or sensory changes. [] Psychiatric: Denies depression or anxiety. [] Heart Score: C/O Chest Pain: N/A Risk Factors: Risk Factors: DM, Current or recent (<one month) smoker, HTN, HLP, family history of CAD, obesity. Risk Scores: Score 0 - 3: 2.5% MACE over next 6 weeks - Discharge Home Score 4 - 6: 20.3% MACE over next 6 weeks - Admit for Clinical Observation Score 7 - 10: 72.7% MACE over next 6 weeks - Early Invasive Strategies Allergies: Allergies: Allergies Coded Allergies Type Severity Reaction Last Updated Verified No Known Drug Allergies 07/09/14 No Physical Exam: PE: Constitutional: Well developed, well nourished, no acute distress, non-toxic appearance. [] HENT: Normocephalic, atraumatic, bilateral external ears normal, oropharynx moist, no oral exudates, nose normal. [] Right lower gum around the borders is swollen. Missing teeth on the molars. No fluctuance to the area. Skin: Warm, dry, no erythema, no rash. [] Back: No tenderness, no CVA tenderness. [] Extremities: No tenderness, no cyanosis, no clubbing, ROM intact, no edema. [] Neurologic: Alert and oriented X 3, normal motor function, normal sensory function, no focal deficits noted. [] Psychologic: Affect normal, judgement normal, mood normal. [] Current Patient Data: Vital Signs: Vital Signs Date Time Temp Pulse Resp B/P (MAP) Pulse Ox O2 Delivery O2 Flow Rate FiO2 05/25/21 15:10 96.5 79 18 185/97 (125) 99 Room Air 96.5 EKG: EKG: [] Radiology/Procedures: Radiology/Procedures: [] Course & Med Decision Making: Course & Med Decision Making Pertinent Labs and Imaging studies reviewed. (See chart for details) This is a 61-year-old female with dental abscess. Discharged on amoxicillin. Follow-up with the dentist next week. She has an appointment Dragsary Disclaimer: Dragsary Disclaimer: This electronic medical record was generated, in whole or in part, using a voice recognition dictation system. Departure Departure Impression: Primary Impression: Abscess, dental Disposition: HOME / SELF CARE / HOMELESS Condition: STABLE Referrals: CHIQUITA QUINONES MD (PCP) follow up with your dentist next week Patient Instructions: Dental Abscess Additional Instructions: You have a dental abscess. Take the prescribed antibiotics until completed. See your dentist as soon as possible Scripts Amoxicillin (AMOXICILLIN) 875 Mg Tablet 1 TAB PO BID, #20 TAB Prov: TRENTON HERNANDEZ APRN 05/25/21 TRENTON HERNANDEZ APRN May 25, 2021 15:41
[2021-05-25] MEDS ORDERED: traMADol 50 MG TABLET PO ONE (15:45)
[2021-05-25] MEDS ORDERED: AMOXICILLIN 250 MG CAPSULE. PO ONE (15:45)
== END 2021-05-25 15:58 | disposition home or self-care (01) ==
LOC: ER 14:52
DX: K04.7 Periapical abscess without sinus (principal); I10 Essential (primary) hypertension
CPT/HCPCS: 99283

== ENCOUNTER 2021-12-06 10:15 | Emergency (ER) | payer OTHER ==
[~2021-12-06] VITALS: Ht 160 cm; Wt 61.4 kg
[~2021-12-06 10:15] MED LIST changes: -CLIN150C15 PO; +CLIN150C16 PO
[2021-12-06] MEDS ORDERED: PENI500T PO (10:35)
--- NOTE | 2021-12-06 10:35 | ED.ADGEN ---
Past Medical History Past Medical History: Hypertension Past Surgical History: Additional Past Surgical Histo: abscess Smoking Status: Never Smoker Alcohol Use: None Drug Use: None General Adult EDM: Chief Complaint: DENTAL PROBLEM HPI: HPI: Patient is a 61-year-old female who arrives ambulatory to the emergency department complaining of right-sided dental pain. Patient reports this pain has been ongoing since Saturday. Patient states she is aware she needs to see a dentist and has follow-up 1 week from today. Patient states however she has concerns that this condition may progress over the next week prior to visiting her dentist. Patient states she has pain sensitivity with both hot and cold foods as it relates to this region. She denies any history of trauma. She further denies any history of fevers or medical concerns otherwise. She is awake, alert and nontoxic-appearing. Review of Systems: Review of Systems: Constitutional: Denies fever or chills. [] Eyes: Denies change in visual acuity. [] HENT: Reports dental pain. Denies nasal congestion or sore throat. [] Respiratory: Denies cough or shortness of breath. [] Cardiovascular: Denies chest pain or edema. [] GI: Denies abdominal pain, nausea, vomiting, bloody stools or diarrhea. [] : Denies dysuria. [] Musculoskeletal: Denies back pain or joint pain. [] Integument: Denies rash. [] Neurologic: Denies headache, focal weakness or sensory changes. [] Endocrine: Denies polyuria or polydipsia. [] Lymphatic: Denies swollen glands. [] Psychiatric: Denies depression or anxiety. [] Allergies: Allergies: Allergies Coded Allergies Type Severity Reaction Last Updated Verified No Known Drug Allergies 07/09/14 No Physical Exam: PE: Constitutional: Well developed, well nourished, no acute distress, non-toxic appearance. [] HENT: Patient has multiple missing teeth with generally poor dentition. There is some mild erythema at the gingiva in the mandibular segment whereby dental caries versus chronically bad appearing dentition are also present. There is no abscess present. Oropharynx is otherwise moist and nonerythematous. [] Eyes: PERRLA, EOMI, conjunctiva normal, no discharge. [] Neck: Normal range of motion, no tenderness, supple, no stridor. [] Cardiovascular:Heart rate regular rhythm, no murmur [] Lungs & Thorax: Bilateral breath sounds clear to auscultation [] Abdomen: Bowel sounds normal, soft, no tenderness, no masses, no pulsatile masses. [] Skin: Warm, dry, no erythema, no rash. [] Back: No tenderness, no CVA tenderness. [] Extremities: No tenderness, no cyanosis, no clubbing, ROM intact, no edema. [] Neurologic: Alert and oriented X 3, normal motor function, normal sensory fun ction, no focal deficits noted. [] Psychologic: Affect normal, judgement normal, mood normal. [] Current Patient Data: Vital Signs: Vital Signs Date Time Temp Pulse Resp B/P (MAP) Pulse Ox O2 Delivery O2 Flow Rate FiO2 12/06/21 10:30 98.3 83 16 133/87 (102) 99 Room Air 98.3 EKG: EKG: [] Heart Score: C/O Chest Pain: No Risk Factors: Risk Factors: DM, Current or recent (<one month) smoker, HTN, HLP, family history of CAD, obesity. Risk Scores: Score 0 - 3: 2.5% MACE over next 6 weeks - Discharge Home Score 4 - 6: 20.3% MACE over next 6 weeks - Admit for Clinical Observation Score 7 - 10: 72.7% MACE over next 6 weeks - Early Invasive Strategies Radiology/Procedures: Radiology/Procedures: [] Course & Med Decision Making: Course & Med Decision Making Pertinent Labs and Imaging studies reviewed. (See chart for details) [] Dragon Disclaimer: Dragon Disclaimer: This electronic medical record was generated, in whole or in part, using a voice recognition dictation system. Departure Departure Impression: Primary Impression: Infected dental caries Disposition: HOME / SELF CARE / HOMELESS Condition: STABLE Referrals: CHIQUITA QUINONES MD (PCP) Patient Instructions: Dental Caries Additional Instructions: Follow-up with your dentist as scheduled. Scripts Penicillin V Potassium (PENICILLIN V POTASSIUM) 500 Mg Tablet 2 TAB PO Q12HR for 10 Days, #40 TAB Prov: SENAIT BLANKENSHIP DO 12/06/21 SENAIT BLANKENSHIP DO Dec 06, 2021 10:35
== END 2021-12-06 10:44 | disposition home or self-care (01) ==
LOC: ER 10:15
DX: K04.7 Periapical abscess without sinus (principal); I10 Essential (primary) hypertension
CPT/HCPCS: 99283

== ENCOUNTER 2022-01-07 08:39 | Emergency (ER) | payer OTHER ==
[~2022-01-07] VITALS: Ht 160 cm; Wt 65.0 kg
[2022-01-07] MEDS ORDERED: CHLO15MO2 SWSP (09:36)
[2022-01-07] MEDS ORDERED: PENI500T PO (09:36)
--- NOTE | 2022-01-07 09:36 | ED.ADGEN ---
Past Medical History Past Medical History: CVA, Hypertension Past Surgical History: Additional Past Surgical Histo: abscess Smoking Status: Never Smoker Alcohol Use: None Drug Use: None General Adult EDM: Chief Complaint: DENTAL PROBLEM HPI: HPI: Patient is a 61 year old AA female who presents emergency department with complaints of right-sided upper and lower dental pain for the last 7 days. Patient states she fell and broke one of her upper and lower teeth and since then has developed worsening dental pain and swelling of her gums. She denies any fever, cough, sore throat, or difficulty swallowing. Patient states that she has been taking Tylenol for the pain and it has been controlling her discomfort. She is requesting antibiotics so that she can get to the dentist on January 18. She currently denies pain unless her teeth are touched. Review of Systems: Review of Systems: Complete ROS is negative unless otherwise noted in the HPI. Allergies: Allergies: Allergies Coded Allergies Type Severity Reaction Last Updated Verified No Known Drug Allergies 07/09/14 No Physical Exam: PE: See above Constitutional: Well developed, well nourished, no acute distress, non-toxic appearance. [] HENT: Normocephalic, atraumatic, bilateral external ears normal, nose normal; multiple broken and missing teeth, gingival edema without visible or palpable abscesses in the right upper quadrant and right lower quadrants, no trismus. [] Eyes: PERRLA, EOMI, conjunctiva normal, no discharge. [] Neck: Normal range of motion, no stridor. [] Cardiovascular:Heart rate regular rhythm Lungs & Thorax: Respirations even and unlabored, no retractions, no respiratory distress Skin: Warm, dry, no erythema, no rash. [] Extremities: No cyanosis, ROM intact, no edema. [] Neurologic: Alert and oriented X 3, no focal deficits noted. [] Psychologic: Affect normal, judgement normal, mood normal. [] Current Patient Data: Vital Signs: Vital Signs Date Time Temp Pulse Resp B/P (MAP) Pulse Ox O2 Delivery O2 Flow Rate FiO2 01/07/22 08:39 98.1 73 16 181/83 (115) 100 Room Air 98.1 EKG: EKG: [] Heart Score: C/O Chest Pain: No Radiology/Procedures: Radiology/Procedures: [] Course & Med Decision Making: Course & Med Decision Making Pertinent Labs and Imaging studies reviewed. (See chart for details) [] Emanuel Disclaimer: Emanuel Disclaimer: This electronic medical record was generated, in whole or in part, using a voice recognition dictation system. Departure Departure Impression: Primary Impression: Infected dental caries Additional Impression: Gingivitis Disposition: HOME / SELF CARE / HOMELESS Condition: STABLE Referrals: CHQIUITA QUINONES MD (PCP) Patient Instructions: Dental Abscess, Dental Caries-Brief, Gingivitis, [id number] Additional Instructions: Fill prescription(s) and use as directed. Follow up with your dentist next month as planned. Return to the ER if symptoms worsen or fever develops. Scripts Chlorhexidine Gluconate (PERIDEX) 15 Ml Mouthwash 15 ML SWSP BID for 7 Days, #473 ML 0 Refills Davey teeth before using to prevent staining. Swish for approximately 30 seconds before spitting. Prov: WESLEY SRIVASTAVA APRN 01/07/22 Penicillin V Potassium (PENICILLIN V POTASSIUM) 500 Mg Tablet 1 TAB PO QID for 10 Days, #40 TAB 0 Refills Prov: WESLEY SRIVASTAVA APRN 01/07/22 Problem Qualifiers WESLEY SRIVASTAVA APRN Jan 07, 2022 09:36
[2022-01-07 09:50] VITALS: BP 158/83
== END 2022-01-07 09:50 | disposition home or self-care (01) ==
LOC: ER 08:39
DX: K04.7 Periapical abscess without sinus (principal); K05.10 Chronic gingivitis, plaque induced; I10 Essential (primary) hypertension; Z86.73 Personal history of transient ischemic attack (TIA), and cerebral infarction without residual deficits
CPT/HCPCS: 99283

== ENCOUNTER 2022-01-31 14:26 | Emergency (ER) | payer OTHER ==
[~2022-01-31] VITALS: Ht 160 cm; Wt 59.4 kg
[~2022-01-31 14:26] MED LIST changes: +CHLO15MO2 SWSP
[2022-01-31 14:40] VITALS: BP 142/90
[2022-01-31] MEDS ORDERED: CHLO15MO2 PO (15:12)
[2022-01-31] MEDS ORDERED: AMOX500T PO (15:12)
--- NOTE | 2022-01-31 15:12 | PHYS DOC ---
Past Medical History Past Medical History: CVA, Hypertension Past Surgical History: Additional Past Surgical Histo: abscess Smoking Status: Never Smoker Alcohol Use: None Drug Use: None General Adult EDM: Chief Complaint: DENTAL PROBLEM HPI: HPI: Patient is a 61 year old female with history of hypertension, CVA with left- sided deficits presenting today complaining of dental infection. Patient states she needs an antibiotic. She states her teeth are broken and have been bleeding. She states she has plan to see a dentist hopefully in the next 1 month. Denies any fever or trismus. Review of Systems: Review of Systems: Constitutional: Denies fever or chills. [] HENT: Reports dental infection. Denies nasal congestion or sore throat. [] Most of her molars and premolars are missing. The remaining teeth the incisors on the right side appear broken. No gum erythema. No dental abscess. Musculoskeletal: Denies back pain or joint pain. [] Integument: Denies rash. [] Neurologic: Denies headache, focal weakness or sensory changes. [] Psychiatric: Denies depression or anxiety. [] Heart Score: C/O Chest Pain: N/A Risk Factors: Risk Factors: DM, Current or recent (<one month) smoker, HTN, HLP, family history of CAD, obesity. Risk Scores: Score 0 - 3: 2.5% MACE over next 6 weeks - Discharge Home Score 4 - 6: 20.3% MACE over next 6 weeks - Admit for Clinical Observation Score 7 - 10: 72.7% MACE over next 6 weeks - Early Invasive Strategies Allergies: Allergies: Allergies Coded Allergies Type Severity Reaction Last Updated Verified No Known Drug Allergies 07/09/14 No Physical Exam: PE: Constitutional: Well developed, well nourished, no acute distress, non-toxic appearance. [] HENT: Normocephalic, atraumatic, bilateral external ears normal, oropharynx moist, no oral exudates, nose normal. [] Eyes: PERRLA, EOMI, conjunctiva normal, no discharge. [] Neck: Normal range of motion, no tenderness, supple, no stridor. [] Cardiovascular:Heart rate regular rhythm, no murmur [] Lungs & Thorax: Bilateral breath sounds clear to auscultation [] Abdomen: Bowel sounds normal, soft, no tenderness, no masses, no pulsatile masses. [] Skin: Warm, dry, no erythema, no rash. [] Back: No tenderness, no CVA tenderness. [] Extremities: No tenderness, no cyanosis, no clubbing, ROM intact, no edema. [] Neurologic: Alert and oriented X 3, normal motor function, normal sensory f unction, no focal deficits noted. [] Psychologic: Affect normal, judgement normal, mood normal. [] Current Patient Data: Vital Signs: Vital Signs Date Time Temp Pulse Resp B/P (MAP) Pulse Ox O2 Delivery O2 Flow Rate FiO2 01/31/22 14:40 98.4 80 18 142/90 (107) 98 Room Air 98.4 EKG: EKG: [] Radiology/Procedures: Radiology/Procedures: [] Course & Med Decision Making: Course & Med Decision Making Pertinent Labs and Imaging studies reviewed. (See chart for details) This is a 61-year-old female patient presenting to the ED today with dental infection. For some reason patient comes to the ED every month for antibiotics. She also states she has a dental appointment in a few weeks. It is unknown if she follows up. Given prescription for chlorhexidine and amoxicillin. Dragon Disclaimer: DragBrainpark Disclaimer: This electronic medical record was generated, in whole or in part, using a voice recognition dictation system. Departure Departure Impression: Primary Impression: Infected dental caries Disposition: HOME / SELF CARE / HOMELESS Condition: STABLE Referrals: CHIQUITA QUINONES MD (PCP) Follow-up with your primary care doctor and dentist in one week Patient Instructions: Dental Caries Additional Instructions: You were evaluated in the emergency room for dental infection. Please follow-up with your dentist and primary care doctor as soon as you can Scripts Chlorhexidine Gluconate (PERIDEX) 15 Ml Mouthwash 15 ML PO BID for 30 Days, #946 ML 0 Refills Prov: TRENTON HERNANDEZ APRN 01/31/22 Amoxicillin (AMOXICILLIN) 500 Mg Tablet 1 TAB PO BID, #20 TAB Prov: TRENTON HERNANDEZ APRN 01/31/22 TRENTON HERNANDEZ APRN Jan 31, 2022 15:12
== END 2022-01-31 15:20 | disposition home or self-care (01) ==
LOC: ER 14:26
DX: K04.7 Periapical abscess without sinus (principal); I10 Essential (primary) hypertension; Z86.73 Personal history of transient ischemic attack (TIA), and cerebral infarction without residual deficits
CPT/HCPCS: 99283